=== PATIENT | female | born 1955 | race Caucasian/White ===

== ENCOUNTER 2021-06-24 10:35 | Outpatient (CLI) | payer BC | END 2021-06-24 10:36 | disposition home or self-care (01) | LOC: CSHCT 10:35 | PROVIDERS: ATTEND Internal Medicine | DX: R10.32 Left lower quadrant pain (principal); R10.84 Generalized abdominal pain; R63.4 Abnormal weight loss; K22.2 Esophageal obstruction; K76.89 Other specified diseases of liver; K44.9 Diaphragmatic hernia without obstruction or gangrene; Z90.710 Acquired absence of both cervix and uterus; K57.30 Diverticulosis of large intestine without perforation or abscess without bleeding | CPT/HCPCS: 74177; 82565 ==